=== PATIENT | female | born 2000 | race Caucasian/White ===

== ENCOUNTER 2020-08-01 09:14 | Emergency (ER) | payer SELFPAY ==
[~2020-08-01] VITALS: Ht 162.6 cm; Wt 68.2 kg
[2020-08-01] MEDS ORDERED: normal saline 1000ML IV soln IVB ONE (10:25)
--- NOTE | 2020-08-01 10:35 | NUR ---
TO CT SCAN, MD GUZMÁN PLACED HARD C COLLAR
--- NOTE | 2020-08-01 11:35 | NUR ---
hard c collar removed per dr pino, patient remains drowsy
--- NOTE | 2020-08-01 12:18 | NUR ---
jaswant esquivel cathed using sterile technique and urine sent
[2020-08-01 12:35] LABS: URINE AMPHETAMINE SCREEN NEGATIVE (Neg); URINE BARBITUATE SCREEN NEGATIVE (Neg); URINE BENZODIAZEPINES SCREEN NEGATIVE (Neg); URINE CANNABINOID SCREEN POSITIVE (Neg); URINE COCAINE SCREEN POSITIVE (Neg); URINE METHADONE SCREEN NEGATIVE (Neg); URINE OPIATE SCREEN NEGATIVE (Neg); URINE PHENCYCLIDINE SCREEN NEGATIVE (Neg)
[2020-08-01] MEDS ORDERED: ketorolac tromethamine 15mg/ml inj. IV ONE (13:05)
--- NOTE | 2020-08-01 13:42 | NUR ---
CALLING MOTHER ERIC POND [phone] FOR A RIDE, MESSAGE LEFT
[2020-08-01 14:37] VITALS: BP 136/86
== END 2020-08-01 14:30 | disposition home or self-care (01) ==
LOC: ER 09:14
DX: S16.1XXA Strain of muscle, fascia and tendon at neck level, initial encounter (principal); F19.129 Other psychoactive substance abuse with intoxication, unspecified; R51.9 Headache, unspecified; F10.129 Alcohol abuse with intoxication, unspecified; F12.90 Cannabis use, unspecified, uncomplicated; Y90.0 Blood alcohol level of less than 20 mg/100 ml; V89.2XXA Person injured in unspecified motor-vehicle accident, traffic, initial encounter; Y93.9 Activity, unspecified; Y92.488 Other paved roadways as the place of occurrence of the external cause; Y99.8 Other external cause status
CPT/HCPCS: 36415; 70450; 72125; 80305; 80320; 96361; 96374; 99285; J1885; J7030